=== PATIENT | female | born 1940 | race Caucasian/White ===

== ENCOUNTER 2023-08-27 07:49 | Day surgery (SDC) | payer MEDICARE ==
[~2023-08-27] VITALS: Ht 154.9 cm; Wt 60.0 kg
[~2023-08-27 07:49] MED LIST: CYCL5TAB PO; LEVO25TA5 PO; LISI5TAB11 PO
[2023-08-27] MEDS ORDERED: LR 1,000 ML IV SCH ×2 (08:45→10:55)
[2023-08-27] MEDS ORDERED: ONDANSETRON 4MG 2ML VIAL As Ordered ONE (09:43)
[2023-08-27] MEDS ORDERED: LIDOCAINE 2% 100MG/5ML SDV (FOR ANES.) As Ordered ONE (09:43)
[2023-08-27] MEDS ORDERED: ROCURONIUM BROMIDE 50MG/5ML VIAL As Ordered ONE (09:43)
[2023-08-27] MEDS ORDERED: SUGAMMADEX SODIUM 500 MG/5 ML VIAL (BRIDION) As Ordered ONE (09:43)
[2023-08-27] MEDS ORDERED: propofoL 200 MG/20 ML VIAL As Ordered ONE (09:43)
[2023-08-27] MEDS ORDERED: fentaNYL 100 MCG/2 ML INJECTION As Ordered ONE (09:44)
[2023-08-27] MEDS ORDERED: ACETAMINOPHEN 1000MG 100ML IV BAG As Ordered ONE (10:23)
[2023-08-27] MEDS: CETACAINE SPRAY 5GM As Ordered ONE (10:30)
[2023-08-27] MEDS: EPINEPHrine 1MG/10ML SYRINGE 1.5IN As Ordered ONE (10:30)
[2023-08-27] MEDS ORDERED: fentaNYL 100 MCG/2 ML INJECTION IV PRN (10:55)
[2023-08-27] MEDS ORDERED: oxyCODONE 5MG TAB PO PRN (10:55)
[2023-08-27] MEDS ORDERED: HYDROMORPHONE HCL 0.5 MG/ 0.5 ML SYRINGE IV PRN (10:55)
[2023-08-27] MEDS ORDERED: ONDANSETRON 4MG 2ML VIAL IV PRN (10:55)
[2023-08-27 12:25] VITALS: BP 144/67; TEMP 97.3; O2SAT 99
== END 2023-08-27 12:32 | disposition home or self-care (01) ==
LOC: M SDC 07:49
PROVIDERS: ATTEND Internal Medicine Pulmonary Disease
DX: R91.8 Other nonspecific abnormal finding of lung field (principal); I10 Essential (primary) hypertension; Z79.899 Other long term (current) drug therapy
CPT/HCPCS: 31623; 31624; 31627; 31654; 71045; 76000; 87070; 87071; 87102; 87116; 87186; 87205; 87206; 88104; J0131; J0171; J1100; J2405; J3010